=== PATIENT | female | born 1945 | race Caucasian/White ===

== ENCOUNTER 2020-09-30 11:29 | Observation (INO) | payer OTHER ==
[~2020-09-30] VITALS: Ht 147.3 cm; Wt 36.6 kg
[~2020-09-30 11:29] MED LIST: GABA100 PO; HYDR1TAB94 PO; OXYC10ER PO; Percocet 5-3251 EACH PO
[2020-09-30 12:11] LABS: BASOPHILS ABSOLUTE AUTO 0.04 K/mm3 (0.00-0.23); BASOPHILS PERCENT AUTO 1 % (0-2); EOSINOPHILS ABSOLUTE AUTO 0.06 K/mm3 (0.00-0.68); EOSINOPHILS PERCENT AUTO 2 % (0-6); Hematocrit 34.7 % (33.0-51.0); Hemoglobin 11.6 g/dL (11.5-16.0); IMMATURE GRAN ABSOLUTE AUTO 0.01 K/mm3 (0.00-0.10); IMMATURE GRAN PERCENT AUTO 0 % (0-1); LYMPHOCYTES ABSOLUTE AUTO 1.49 K/mm3 (0.84-5.20); LYMPHOCYTES PERCENT AUTO 38 % (21-46); MONOCYTES ABSOLUTE AUTO 0.53 K/mm3 (0.16-1.47); MONOCYTES PERCENT AUTO 14 % (4-13); Mean Corpuscular HGB 31.6 pg (26.0-34.0); Mean Corpuscular HGB Conc 33.4 g/dL (31.5-36.5); Mean Corpuscular Volume 95 fL (80-100); Mean Platelet Volume 8.6 fL (9.1-12.4); NEUTROPHILS ABSOLUTE AUTO 1.75 K/mm3 (1.96-9.15); NEUTROPHILS PERCENT AUTO 45 % (41-73); Platelet Count 289 K/mm3 (150-400); Red Blood Cell Count 3.67 M/mm3 (3.80-5.20); White Blood Cell Count 3.88 K/mm3 (4.00-11.30)
[2020-09-30 12:28] LABS: Alanine Aminotransfer (ALT/SGP 20 U/L (12-78); Albumin, Blood 4.2 g/dL (3.4-5.0); Alk Phos 68 U/L (50-136); Aspartate Aminotrans (AST/SGOT 30 U/L (12-37); Bilirubin, Total 0.6 mg/dL (0.1-1.0); Blood Urea Nitrogen 32 mg/dL (8-24); Bun/Creatinine Ratio 16.2 (12.0-20.0); Calcium, Blood 8.9 mg/dL (8.5-10.1); Chloride, Blood 79 mmol/L (98-108); Creatinine, Blood 1.98 mg/dL (0.40-1.00); Globulin, Blood 4.2 g/dL (2.2-4.0); Glomerular Filtration Rate 26 (60-); Glucose, Blood 96 mg/dL (70-99); Magnesium, Blood 2.5 mg/dL (1.6-2.4); Potassium, Blood 2.5 mmol/L (3.5-5.5); Sodium, Blood 132 mmol/L (136-145); Total Protein, Blood 8.4 g/dL (6.4-8.2)
[2020-09-30 12:41] LABS: CO2, Blood >45 mmol/L (21-32)
[2020-09-30 12:44] LABS: Anion Gap Unable to Calculate mmol/L (6-16)
[2020-09-30] MEDS ORDERED: DULO60 PO (14:58)
[2020-09-30] MEDS ORDERED: IMITREX50 M2 PO (18:37)
[2020-09-30 22:34] LABS: Source, Urine Clean Catch
[2020-09-30 22:36] LABS: Bilirubin, Urine Neg (Neg); Blood, Urine 1+ (Neg); Glucose Qualitative, Urine Neg (Neg); Ketones, Urine 1+ (Neg); Leukocyte Esterase, Urine Neg (Neg); Nitrite, Urine Neg (Neg); Protein, Urine 1+ (Neg); Specific Gravity, Urine 1.015 (1.003-1.022); Urobilinogen, Urine NORM (Normal)
[2020-09-30 22:38] LABS: Appearance, Urine Clear (Clear); Color, Urine Yellow (P-Yellow)
[2020-09-30 22:47] LABS: Bacteria Few /hpf; Squamous Epithelial Cells Few /hpf (Few); White Blood Cells, Urine 0-2 /hpf (0-5)
--- NOTE | 2020-09-30 22:53 | NUR ---
ADMIT: KELL IS AOX3, SENT TO ER BY PCP DUE TO KIDNEY FAILURE ON LABS. INDEPENDENT, DENIES ANY SYMPTOMS OF KIDNEY FAILURE OTHER THEN SOME SORENESS IN THE LEFT SIDE FLANK. LUNG SOUNDS ARE CLEAR, DISPITE HER CRITICAL LEVELS OF CO2 AND COPD ON XRAY. DENIES ANY PROBLEMS BRETHING. HR SINUS ON TELE, NO CHEST PAIN DESPITE LOW POTASSIUM. GOT 40MEQ IN ER. NO EDEMA NOTED. SKIN IS FRAGILE. ENCOURAGED FLUIDS AND GOOD INTAKE. STATES SHE DOES NOT HAVE MUCH OF AN APPETITE LATELY. HAS LOST 10LBS RECENTLY WITH OUT TRYING. DENIES ANY OTHER ISSUES. CALL LIGHT IS IN REACH.
[2020-10-01 04:50] LABS: BASOPHILS ABSOLUTE AUTO 0.04 K/mm3 (0.00-0.23); BASOPHILS PERCENT AUTO 1 % (0-2); EOSINOPHILS ABSOLUTE AUTO 0.08 K/mm3 (0.00-0.68); EOSINOPHILS PERCENT AUTO 2 % (0-6); Hematocrit 30.3 % (33.0-51.0); Hemoglobin 10.2 g/dL (11.5-16.0); Mean Corpuscular HGB 31.6 pg (26.0-34.0); Mean Corpuscular HGB Conc 33.7 g/dL (31.5-36.5); Mean Corpuscular Volume 94 fL (80-100); Mean Platelet Volume 8.8 fL (9.1-12.4); Platelet Count 258 K/mm3 (150-400); Red Blood Cell Count 3.23 M/mm3 (3.80-5.20); White Blood Cell Count 3.91 K/mm3 (4.00-11.30)
[2020-10-01 04:52] LABS: IMMATURE GRAN ABSOLUTE AUTO 0.01 K/mm3 (0.00-0.10); IMMATURE GRAN PERCENT AUTO 0 % (0-1); LYMPHOCYTES ABSOLUTE AUTO 1.65 K/mm3 (0.84-5.20); LYMPHOCYTES PERCENT AUTO 42 % (21-46); MONOCYTES ABSOLUTE AUTO 0.49 K/mm3 (0.16-1.47); MONOCYTES PERCENT AUTO 13 % (4-13); NEUTROPHILS ABSOLUTE AUTO 1.64 K/mm3 (1.96-9.15); NEUTROPHILS PERCENT AUTO 42 % (41-73)
[2020-10-01 05:05] LABS: Bun/Creatinine Ratio 19.6 (12.0-20.0); Calcium, Blood 8.4 mg/dL (8.5-10.1); Creatinine, Blood 1.58 mg/dL (0.40-1.00); Magnesium, Blood 2.2 mg/dL (1.6-2.4); Potassium, Blood 2.8 mmol/L (3.5-5.5)
--- NOTE | 2020-10-01 05:24 | NUR ---
SHIFT SUMMARY: AOX3, INDEPENDENT IN THE ROOM. NO PAIN OR DISCOMFORT. SHE DID REPORT OCCATIONAL LEFT FLANK PAIN BUT NONE THIS SHIFT. URINE OUTPUT HAS INCREASED SINCE FLUIDS WERE GIVEN BUT STATES SHE USUALLY ONLY GOES LITTLE AT A TIME. STATES INTAKE OF FLUIDS IS NOT MUCH SHE SHOULD. NO EDMEA. LUNG SOUNDS ARE CLEAR. POTASSIUM WAS 2.5 WHICH CAME UP TO 2.8. NA WAS 132 CAME UP TO 133. CREATINE WAS 1.98 NOW IS 1.58, AND GFR WS 26 NOW AT 31. CO2 WAS >[address] COVARRUBIAS CONSULTED. ORDER FOR K JEREMY OBTAINED. VSS/AFEBRILE. WILL CONTINUE TO MONITOR. CALL LIGHT IS IN REACH.
[2020-10-01 17:39] LABS: Base Excess Venous 17.2 mmol/L; Bicarbonate Venous 39.4 mmol/L (24.0-30.0); PCO2 Venous 44.9 mmHg (38-42); PO2 Venous 72.1 mmHg (38-42); pH Blood Venous 7.55 (7.34-7.37)
--- NOTE | 2020-10-01 18:12 | NUR ---
SHIFT SUMMARY PT ALERT ORIENTED; INDEPENDENT IN THE ROOM. VSS AND ON RA. ON TELE NS @70S. CALLED DR COVARRUBIAS AND DR DING FOR VBG CRITICAL VALUE. K LEVEL IS NOW WNL. PT DENIES CP AND PAIN. NO COMPLAINTS OF RETENTION OR PAIN WHEN URINATING. BED IS IN THE LOWEST POSITION AND CALL LIGHT WITHIN REACH
--- NOTE | 2020-10-01 22:06 | NUR ---
ASSUMED CARE. AOX3, INDEPENDENT IN THE ROOM. POTASSIUM DOING BETTER, WILL SEE IF LEVELS HOLD IN THE AM. KIDNEY FUNCTIONS HAVE IMPROVED. SHE STILL STATES NO SYMPTOMS. LUNGS ARE CLEAR DESPITE THE CO2 RETENTION AND ELEVATION IN PH LEVELS. HR SINUS ON TELE. DENIES ALL SYPTOMS STATES SHE FEELS GREAT. GOT ORDER FOR PM MEDICATION, ADMINISTERED THEM. WILL CONTINUE TO MONITOR. CALL LIGHT IN REACH.
[2020-10-02 05:03] LABS: Hematocrit 30.5 % (33.0-51.0); Hemoglobin 10.4 g/dL (11.5-16.0)
--- NOTE | 2020-10-02 05:32 | NUR ---
SHIFT SUMMARY: VS WNL, NO PAIN. GOT ORDER FOR HOME MEDICATIONS LAST NIGHT. GAVE AT BEDTIME. SHE SLEPT WELL T/O NIGHT. DENIED ANY SYMPTOMS OR CONCERNS. H/H THIS AM WAS 10.4/30.5, AWAITING REST OF LABS. STILL NO EDEMA, OR RESPIRTORY ISSUES DESPITE LAB RESULTS. WILL CONTINUET TO MONITOR, CALL LIGHT IN REACH.
[2020-10-02 05:52] LABS: Albumin, Blood 3.3 g/dL (3.4-5.0); Anion Gap 5 mmol/L (6-16); Blood Urea Nitrogen 28 mg/dL (8-24); Bun/Creatinine Ratio 23.1 (12.0-20.0); CO2, Blood 35 mmol/L (21-32); Calcium, Blood 8.7 mg/dL (8.5-10.1); Chloride, Blood 98 mmol/L (98-108); Creatinine, Blood 1.21 mg/dL (0.40-1.00); Glomerular Filtration Rate 46 (60-); Glucose, Blood 90 mg/dL (70-99); Magnesium, Blood 1.9 mg/dL (1.6-2.4); Potassium, Blood 3.4 mmol/L (3.5-5.5); Sodium, Blood 138 mmol/L (136-145)
[2020-10-02 13:14] LABS: Stool Occult Bld Immuno 1 Positive (NEGATIVE)
--- NOTE | 2020-10-02 14:28 | NUR ---
ADMIT:1945 DISCHARGE: 10/02/20 DX: Acute on chronic Kidney failure CC:kwilcox RISHI CALL: pt @ [phone] RESIDENCE: home CAREGIVER: Rose Arevalo , Family Member, Emery Persaud, Child, Clarissa Bauer, Family Member DX: chronic arthritis, insomnia, anxiety/depression, osteoporosis DME: none CCM: none HOME HEALTH: [facility]2019 SUMMARY: 10/02/20- Dr. Manzo called to report that Dr. Roa is agreeing with having the pt complete tests as an outpt. -kjw per chart review with Dr. Manzo, Dr. Roa would like to run some tests on the pt to determine why she is having issues with her kidneys and unexplained weight loss. Dr. Manzo is going to see if these tests can be completed as an outpt because the pt is wanting to d.c home. Met with pt who reports that she would really like to go home. She was independent prior to coming into the hospital and didn't need any caregiver or home health services. Pt reports that she lives alone in a [address] community with her dog and has neighbors that look in on her and they are currently watching her dog for her. Pt states that she has a sister that lives close by. Pt lives in a single story home with working utilities, including AC. There is a step or 2 to get into the back of the house and a ramp up to the front door. 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 Pt does not have a POA and her NOK (next of kin) is her son Emery Persaud. She has no DME needs at this time. Reviewed RISHI and pt acknowledged understanding needing to have follow up care. -kjw
[2020-10-02] MEDS ORDERED: SPIR25 PO (14:45)
--- NOTE | 2020-10-02 15:44 | NUR ---
1530 PT DISCHARGED HOME . IV REMOVED, NO SS OF INFECTION NOTED.NURSE WENT OVER DC INSTRUCTIONS WITH PT. PT REQUESTED AND WAS ABLE TO WALK OUT WITH STAFF.
[2020-10-07 01:10] LABS: ALDOS/RENIN RATIO 3.1 (0.0-30.0); ALDOSTERONE 4.8 ng/dL (0.0-30.0)
== END 2020-10-02 15:28 | disposition home or self-care (01) ==
LOC: ER 11:29 → MEDS 11:30 → ER 18:50 → MEDS 18:50
PROVIDERS: Internal Medicine Nephrology; Physician Assistant; ADMIT Student in an Organized Health Care Education/Training Program
DX: N17.9 Acute kidney failure, unspecified (principal); N18.9 Chronic kidney disease, unspecified; E87.6 Hypokalemia; E87.1 Hypo-osmolality and hyponatremia; E86.9 Volume depletion, unspecified; D64.9 Anemia, unspecified; M80.08XA Age-related osteoporosis with current pathological fracture, vertebra(e), initial encounter for fracture; R79.81 Abnormal blood-gas level; R63.4 Abnormal weight loss; E87.3 Alkalosis; E88.09 Other disorders of plasma-protein metabolism, not elsewhere classified; M79.2 Neuralgia and neuritis, unspecified; Z96.642 Presence of left artificial hip joint; Z68.1 Body mass index [BMI] 19.9 or less, adult; Z80.0 Family history of malignant neoplasm of digestive organs; Z87.442 Personal history of urinary calculi
CPT/HCPCS: 36415; 71046; 76770; 80048; 80053; 80069; 81001; 82088; 82274; 82803; 83735; 84132; 84244; 84443; 85014; 85018; 85025; 85651; 86140; 93005; 93010; 96361; 96365; 96366; 96372; 99284-25; A9270; G0378; J1650; J3480; J7040; J7120

== ENCOUNTER → 2020-10-12 | Outpatient (CLI) | payer OTHER ==
[~2020-10-12] MED LIST changes: +DULO60 PO; +IMITREX50 M2 PO; +SPIR25 PO
[2020-10-13 12:58] LABS: Creatinine Urine 65.7 mg/dL (27.00-270.00); Microalbumin, Urine Quant. 15.6 mg/L (0.000-20.000); Protein, Urine Quantitative 16.5 mg/dL (0.0-11.9)
== END | disposition home or self-care (01) ==
LOC: LAB 08:48 → LAB SHORT 08:48
PROVIDERS: Internal Medicine Nephrology
DX: N18.30 Chronic kidney disease, stage 3 unspecified (principal); D63.1 Anemia in chronic kidney disease; N25.81 Secondary hyperparathyroidism of renal origin; E55.9 Vitamin D deficiency, unspecified; E78.00 Pure hypercholesterolemia, unspecified; D50.9 Iron deficiency anemia, unspecified; D51.8 Other vitamin B12 deficiency anemias; D52.8 Other folate deficiency anemias; R76.9 Abnormal immunological finding in serum, unspecified; R94.5 Abnormal results of liver function studies; R94.6 Abnormal results of thyroid function studies; G60.9 Hereditary and idiopathic neuropathy, unspecified
CPT/HCPCS: 81050; 82043; 82570; 84156

== ENCOUNTER 2021-01-08 12:30 | Day surgery (SDC) | payer OTHER ==
[~2021-01-08] VITALS: Ht 147.3 cm; Wt 34.0 kg
[~2021-01-08 12:30] MED LIST changes: +TYLENOL #2 PO
--- NOTE | 2021-01-08 16:03 | NUR ---
01/08/21 1603 Elbert Montilla 0.15ML OF EPI 1MG/ML ADDED TO 30ML OF BUPIVICAINE 0.5% TO CREATE A LOCAL SOLUTION OF BUPIVICAINE 0.5% WITH EPI 1:200,000. BUPIVICAINE WITH EPI MIXED 1:1 WITH LIDOCAINE 1% FOR INJECTION.
== END 2021-01-08 17:07 | disposition home or self-care (01) ==
LOC: ORSCSDS 12:30
PROVIDERS: Orthopaedic Surgery
PROC: 0LB50ZZ Excision of Right Lower Arm and Wrist Tendon, Open Approach (ICD-10-PCS; principal; 2021-01-08 14:00)
PROC: 0LB60ZZ Excision of Left Lower Arm and Wrist Tendon, Open Approach (ICD-10-PCS; principal; 2021-01-08 14:00)
DX: M67.432 Ganglion, left wrist (principal); M67.431 Ganglion, right wrist; M65.141 Other infective (teno)synovitis, right hand; F32.A Depression, unspecified; Z79.899 Other long term (current) drug therapy
CPT/HCPCS: J0171; J0690; J2250; J2704; J3010; J7120

== ENCOUNTER → 2021-03-26 | Outpatient (CLI) | payer OTHER ==
[2021-03-26 13:20] LABS: Stool Occult Bld Immuno 1 Negative (NEGATIVE)
== END | disposition home or self-care (01) ==
LOC: LAB SHORT 08:05
PROVIDERS: Physician Assistant
DX: K92.1 Melena (principal)
CPT/HCPCS: 82274

== ENCOUNTER 2021-03-28 07:23 | Inpatient (IN) | payer OTHER ==
[~2021-03-28] VITALS: Ht 147.3 cm; Wt 34.0 kg
[2021-03-28 11:05] LABS: Influenza A, PCR NEGATIVE (NEGATIVE); Influenza B, PCR NEGATIVE (NEGATIVE); Resp Syncytial Virus, PCR NEGATIVE (NEGATIVE); SARS-Cov-2 (COVID-19) PCR, MMC NEGATIVE (NEGATIVE)
--- NOTE | 2021-03-28 17:57 | NUR ---
SHIFT SUMMARY PT A&OX4, VSS/RA, RLE FEMUR FRACTURE, PAIN MANAGED WITH 5 MG NORCO, GILMER PO REG DIET, WILL REPORT TO ONCOMING NOC RN.
[2021-03-29 04:40] LABS: BASOPHILS ABSOLUTE AUTO 0.03 K/mm3 (0.00-0.23); BASOPHILS PERCENT AUTO 1 % (0-2); EOSINOPHILS ABSOLUTE AUTO 0.07 K/mm3 (0.00-0.68); EOSINOPHILS PERCENT AUTO 1 % (0-6); Hematocrit 24.9 % (33.0-51.0); Hemoglobin 8.5 g/dL (11.5-16.0); IMMATURE GRAN ABSOLUTE AUTO 0.02 K/mm3 (0.00-0.10); IMMATURE GRAN PERCENT AUTO 0 % (0-1); LYMPHOCYTES ABSOLUTE AUTO 0.87 K/mm3 (0.84-5.20); LYMPHOCYTES PERCENT AUTO 14 % (21-46); MONOCYTES ABSOLUTE AUTO 0.68 K/mm3 (0.16-1.47); MONOCYTES PERCENT AUTO 11 % (4-13); Mean Corpuscular HGB 32.7 pg (26.0-34.0); Mean Corpuscular HGB Conc 34.1 g/dL (31.5-36.5); Mean Corpuscular Volume 96 fL (80-100); Mean Platelet Volume 9.1 fL (9.1-12.4); NEUTROPHILS PERCENT AUTO 73 % (41-73); Platelet Count 260 K/mm3 (150-400); RDW Coefficient Variation 14.5 % (11.7-14.2); RDW Standard Deviation 50.9 fL (35.1-46.3); White Blood Cell Count 6.27 K/mm3 (4.00-11.30)
[2021-03-29 05:09] LABS: Bun/Creatinine Ratio 27.9 (12.0-20.0); Calcium, Blood 8.5 mg/dL (8.5-10.1); Creatinine, Blood 1.29 mg/dL (0.40-1.00); Potassium, Blood 2.8 mmol/L (3.5-5.5)
--- NOTE | 2021-03-29 05:29 | NUR ---
PT IS IN BED AND IS RESTING WELL AND IN STABLE CONDITION. ALERT, AWAKE AND ORIENTED. HAS REPORTED PAIN TO HER LEFT HIP AND MEDICATED INDICATED, NO OTHER COMPLAINTS. LEFT LEG MOVEMENT IS LIMITED D/T L HIP FRACTURE, BUT CIRCULATION IS INTACT EVIDENCED BY WARMTH AND PALPABLE PULSES, SWELLING IN THE AFFECTED EXTREMITY IS ALSO MINIMAL. PT IS ASSISTED WITH HER CARE AND ADLS, MEDICATED ORDERED. SHE IS ASSISTED WITH BATHROOM AND TOILETING NEEDS, CALL LIGHT GIVEN TO HER AND REMINDED TO CALL FOR HELP WHEN ASSISTANCE IS NEEDED SHE IS MONITORED.
--- NOTE | 2021-03-29 16:32 | NUR ---
Initial Assessment with [facility] Community Coordinator Of Online Programs 1. Who did you speak with? Spoke with patient 2. What is the patient's prior level of functions? Patient lives independently in a nursing home mobile home community in [place]. Patient still drives and if pretty independent with support from her sister and friends when needed. Patient's home is safe with running water, electricity, and sewage. Patient uses a walker, has a ramp, shower seat, and toilet lift for assistance. 3. What is the patient's current living situation? Patient lives independently. 4. Is the patient and/or family able to provide transportation to and from doctor's appointments and tow picker prescriptions? Yes, patient drives and able to provide transportation to appointments and pharmacy ([facility]). 5. Does patient still drive? Yes 6. POA/PCP/NOK: PCP-MEG Soni/NOK: Sister Rose Mayer 7. ANTICIPATED DISCHARGE NEEDS/GOALS: TBD -patient able to return home 8. List barriers to discharge: None on this date 9. Discharge Plan: TBD 10. PCP Follow up appointment: Will be scheduled within seven calendar days of discharge. 11. OTHER COMMENTS: Patient has a niece in [place] and a host of friends and neighbors to help as needed.
--- NOTE | 2021-03-29 18:23 | NUR ---
SUMMARY: PT ADMITTED FOR R HIP FX. A/O, VSS. PT MEDICATED FOR PAIN Q4 TODAY. ABLE TO WIGGLE TOES AND SENSATION INTACT. PT REFUSED REPOSITIONING SEVERAL TIMES TODAY DUE TO PAIN, AGREED TO REPOSITION TONIGHT. SHARIF PATENT AND DRAINING. POTASSIUM CURRENTLY INFUSING. PLAN FOR NPO AT 0000 AND SURGERY TOMORROW. WILL REPORT TO SKY CARDENAS
--- NOTE | 2021-03-30 10:52 | NUR ---
Pt. was alert and sitting up in bed. Pt. presented a postive demeanor but after theraputic listening, verbalized some unsettledness regarding a delay in her procedure. Pt. welcomed my invitation to pray with her. After pastoral prayer she displayed evidence of reduced stress, and gratitude for the hospitals concern for her care. Pt. verbalized gratitude, and welcomed me to check on her progress. I will continue to check on her.
--- NOTE | 2021-03-30 13:01 | NUR ---
PT TRANSFERED TO [facility] VIA BED FROM FLOOR. Patient confirms NPO status and agrees with scheduled surgery. Pre-Op teaching done. Pt verbalizes understanding. History, Chart, Medications and Allergies reviewed before start of procedure. Lungs clear T/O to Auscultation.
--- NOTE | 2021-03-30 14:23 | NUR ---
03/30/21 1423 Rose Segura PATIENT ARRIVED IN OR WITH SHARIF CATHETER IN PLACE DRAINING YELLOW URINE.
--- NOTE | 2021-03-30 18:19 | NUR ---
SHIFT SUMMARY PT IS POD#0 FROM L HIP REPAIR WITH DR. LYNCH. PT IS TOLERATING PO AFTER SURGERY. PAIN MANAGED WITH PO PAIN MEDICATION. PT'S SISTER WAS AT BEDSIDE THIS EVENING. VSS. WILL MONITOR UNTIL REPORT TO SKY CARDENAS.
[2021-03-31 04:44] LABS: BASOPHILS ABSOLUTE AUTO 0.01 K/mm3 (0.00-0.23); BASOPHILS PERCENT AUTO 0 % (0-2); EOSINOPHILS PERCENT AUTO 0 % (0-6); Hematocrit 23.1 % (33.0-51.0); Hemoglobin 7.6 g/dL (11.5-16.0); IMMATURE GRAN ABSOLUTE AUTO 0.03 K/mm3 (0.00-0.10); IMMATURE GRAN PERCENT AUTO 1 % (0-1); LYMPHOCYTES ABSOLUTE AUTO 0.43 K/mm3 (0.84-5.20); LYMPHOCYTES PERCENT AUTO 7 % (21-46); MONOCYTES PERCENT AUTO 8 % (4-13); Mean Corpuscular HGB 32.8 pg (26.0-34.0); Mean Corpuscular HGB Conc 32.9 g/dL (31.5-36.5); Mean Corpuscular Volume 100 fL (80-100); Mean Platelet Volume 9.2 fL (9.1-12.4); NEUTROPHILS ABSOLUTE AUTO 5.68 K/mm3 (1.96-9.15); NEUTROPHILS PERCENT AUTO 85 % (41-73); Platelet Count 248 K/mm3 (150-400); RDW Coefficient Variation 14.8 % (11.7-14.2); RDW Standard Deviation 53.3 fL (35.1-46.3); Red Blood Cell Count 2.32 M/mm3 (3.80-5.20); White Blood Cell Count 6.65 K/mm3 (4.00-11.30)
--- NOTE | 2021-03-31 05:56 | NUR ---
SHIFT SUMMARY NO ACUTE CHANGES OVERNIGHT. POD1 R HIP GAMMA NAILING WIHT 2 AQUACEL DRESSING, CDI. PT REPORTS MODERATE PAIN, APPEARS COMFORTABLE WHEN AT REST. AOX4. PLEASANT. PT DENIES NUMBNESS AND TINGLING SENSATION. MILDLY HYPOTENSIVE BUT ASYMPTOMATIC. PT DENIES CHEST PAIN AND SOB. IV FLUIDS INFUSING OVERNIGHT. TOLERATING PO INTAKE. DENIES NAUSEA AND VOMITING. PAIN MANAGED WITH TYLENOL AND ULTRAM. SHARIF DRAINING, PATENT, OFF FLOOR WITH AN OUTPUT OF 550 ML. USE CALL LIGHT APPROPRIATELY. PT STS SHE SLEPT WELL OVERNIGHT. CALL LIGHT WITHIN REACH. WILL PROVIDE REPORT TO ONCOMING NURSE. PT WILL WORK WITH THERAPY TODAY. TOETOUCH WB.
--- NOTE | 2021-03-31 15:53 | NUR ---
Pt. was sitting up in her recliner chair. Pt. welcomed my return visit. Pt. reported results from the previous day's surgery, and anticipates being discharged tomorrow. Explored her plans for continued self-care. Offered emotional support and provided pastoral career technical counselor. Pt. has a strong ander system and family support. Pt. displayed evidence of increased resolve to heal and help others, as others had helped her. Pt. verbalized gratitude for care received. Prayed with pt. Agreed to check on her before discharge.
--- NOTE | 2021-03-31 17:54 | NUR ---
SHIFT SUMMARY: PATIENT ABLE TO TRANSFER TO BEDSIDE COMMODE USING A WALKER WITH TOE TOUCH TO RIGHT LEG ON GUARD ASSIST X 1. VOMITTED SOME OF THE FOOD SHE ATE, ZOFRAN GIVEN. PAIN MANAGED WITH PO PAIN MEDICINE. RIGHT HIP WITH AQUACEL DRESSING DRY & INTACT. AOX3, NO NEW UNUSUSALITIES NOTED, WILL CONTINUE TO MONITOR.
--- NOTE | 2021-04-01 04:09 | NUR ---
EMESIS COFFEE GROUND LIKE/LIQUID 800ML AT 0325AM. PT REPORTS NAUSEA, STATING "THIS HAPPENED BEFORE WHEN I HAD SURGERY" ABOUT A YEAR AGO. SHE DENIES HX OF GI BLEED AND ULCERS. SHE ALSO STATES THAT THE COLOR AND CONSISTENCY IS THE SAME BEFORE. IT USUALLY HAPPENS WHEN SHE IS ANXIOUS AND HER ROUTINE CHANGES, SUCH EATING SCHEDULE. PT ALSO REPORTS SOME DIZZINESS. ASSESSED SURGICAL SITE, REMAIN CLEAN, DRY AND INTACT. NO BRUISING/DISCOLORATION AROUND THE SITE. SHE IS ALSO HYPOTENSIVE AND TACHY. CHARGE NURSE NOTIFIED AND DR. BENAVIDEZ NOTIFIED. ORDER FOR BOLUS AND LABS ARE ADDED. PT IS ALERT AND ORIENTED X4. PLEASANT. SMILING. APPEARS TO BE PALE. SHARIF INTACT AND DRAINING WITH AN OUTPUT OF 250ML. WILL CONTINUE TO MONITOR PATIENT AND WILL FOLLOW UP WITH HOSPITALIST FOR ANY CHANGES AND IF NO IMPROVEMENT.
[2021-04-01 04:28] LABS: BASOPHILS ABSOLUTE AUTO 0.03 K/mm3 (0.00-0.23); BASOPHILS PERCENT AUTO 0 % (0-2); EOSINOPHILS ABSOLUTE AUTO 0.03 K/mm3 (0.00-0.68); EOSINOPHILS PERCENT AUTO 0 % (0-6); Hematocrit 18.2 % (33.0-51.0); IMMATURE GRAN ABSOLUTE AUTO 0.03 K/mm3 (0.00-0.10); IMMATURE GRAN PERCENT AUTO 0 % (0-1); LYMPHOCYTES ABSOLUTE AUTO 1.47 K/mm3 (0.84-5.20); LYMPHOCYTES PERCENT AUTO 19 % (21-46); MONOCYTES ABSOLUTE AUTO 0.81 K/mm3 (0.16-1.47); MONOCYTES PERCENT AUTO 10 % (4-13); Mean Corpuscular HGB 32.8 pg (26.0-34.0); Mean Corpuscular Volume 100 fL (80-100); Mean Platelet Volume 9.3 fL (9.1-12.4); NEUTROPHILS ABSOLUTE AUTO 5.57 K/mm3 (1.96-9.15); NEUTROPHILS PERCENT AUTO 70 % (41-73); Platelet Count 308 K/mm3 (150-400); RDW Coefficient Variation 15.4 % (11.7-14.2); RDW Standard Deviation 55.2 fL (35.1-46.3); Red Blood Cell Count 1.83 M/mm3 (3.80-5.20); White Blood Cell Count 7.94 K/mm3 (4.00-11.30)
[2021-04-01 06:02] LABS: Albumin, Blood 2.1 g/dL (3.4-5.0); Albumin/Globulin Ratio 0.7 (0.8-1.8); Bilirubin, Total 0.5 mg/dL (0.1-1.0); Bun/Creatinine Ratio 30.4 (12.0-20.0); Calcium, Blood 8.1 mg/dL (8.5-10.1); Creatinine, Blood 1.12 mg/dL (0.40-1.00); Globulin, Blood 3.1 g/dL (2.2-4.0); Total Protein, Blood 5.2 g/dL (6.4-8.2)
--- NOTE | 2021-04-01 06:07 | NUR ---
BBK ORDER FROM DR. BENAVIDEZ PER CHARGE NURSE ROSA M FOR BLOOD TRANSFUSION, 1UNIT.
--- NOTE | 2021-04-01 06:22 | NUR ---
SHIFT SUMMARY PT AOX4. PT HAS BEEN VERY NICE AND PLEASANT T/O SHIFT. POD2 R GAMMA NAILING WITH DR. BENAVIDEZ. PT REPORTS PAIN WITH MOVEMENT, 7/10 PAIN LEVEL. PAIN MANAGED WITH NORCO. REPORTS SOME NAUSEA AND VOMITED AT 0320 IN THE MORNING WITH COFFEE GROUND EMESIS 800ML (SEE PREVOIUS NOTES). ZOFRAN IV ADMINSTERED. PT STS SHE FEELS SOME DIZZINESS, APPEARS TO BE PALE. RECHECKD VITALS. SHE WAS HYPOTENSIVE AND TACHY. NOTIFIED CHARGE NURSE ROSA M, SHE CONSULTED DR. BENAVIDEZ. ORDERS FOR LAB AND 500CC FLUIDS BOLUS WAS ADDED. BP IMPROVED AND HGB AT 6.0. NOTIFIED DR. BENAVIDEZ. 1UNIT OF BLOOD WAS ORDERED. PT WAS SYMPTOMATIC BUT HAS BEEN ALERT AND ORIENTED. SHARIF IS DRAINING AND PATENT WITH 250ML OUTPUT. PLAN FOR BLOOD TO BE ADMINISTERED THIS MORNING. AND WILL CONTINUE TO MONITOR PATIENT. CALL LIGHT WITHIN REACH. WILL PROVIDE REPORT TO ONCOMING NURSE.
--- NOTE | 2021-04-01 10:56 | NUR ---
I UNIT PRBC DONE INFUSING PT REPORTS FEELING MORE ENERGETIC SINCE INFUSION. SHE REPORTS REFLUX PAIN IMPROVED THIS AFTERNOON AND LESS NAUSEA. SHE DENIES ANY SHORTNESS OF BREATH, ITCHING, NO REDNESS SEEN. TOLERATED INFUSION WELL.
--- NOTE | 2021-04-01 11:04 | NUR ---
SPOKE WITH DR JOSE REGARDING COFFEE GROUND EMESIS LAST NIGHT. ORDERS RECIEVED TO PLACE GI CONSULT.
--- NOTE | 2021-04-01 14:03 | NUR ---
EMESIS PT HAD 200ML COFFEE GROUND EMESIS OUT. SHE DENIES NAUSEA AND REPORTS STILL FEELING OKAY.
[2021-04-01 14:10] LABS: Hematocrit 22.6 % (33.0-51.0); Hemoglobin 7.7 g/dL (11.5-16.0)
--- NOTE | 2021-04-01 16:10 | NUR ---
SHIFT SUMMARY POD 2 GAMMA NAIL AA0X4. PT UP TO CHAIR WITH THERAPY. REPORTS PAIN TOLERABLE EXCEPT WITH MOVEMENT. DECLINED PAIN MEDS WHEN EDUCATED ON IMPORTANCE OF USING MEDICATION TO MOVE WELL. SHE RECIEVED ONE UNIT OF BLOOD AND REPORTS FEELING IMPROVEMENT. ONE EMESIS DURING SHIFT. PT HAS BEEN DRINKING FLUIDS ONLY. BOWEL SOUNDS VERY QUIET AND PT DECLINES PASSING FLATUS. SHARIF REMAINS PATENT AND DRAINING. PLAN TO AWAIT PLACEMENT
--- NOTE | 2021-04-02 04:22 | NUR ---
PT IS ALERT AND ORIENTED X4. INCISION COVERED WITH DRESSING; INTACT. DIET REGULAR BUT NOT EATING MUCH. NOT NAUSEATED OR DIZZY. NO EMESIS. UP TONIGHT WITH RN. PT IS VERY PLEASANT.
[2021-04-02 04:28] LABS: BASOPHILS ABSOLUTE AUTO 0.03 K/mm3 (0.00-0.23); BASOPHILS PERCENT AUTO 0 % (0-2); EOSINOPHILS ABSOLUTE AUTO 0.02 K/mm3 (0.00-0.68); EOSINOPHILS PERCENT AUTO 0 % (0-6); IMMATURE GRAN PERCENT AUTO 1 % (0-1); LYMPHOCYTES ABSOLUTE AUTO 1.12 K/mm3 (0.84-5.20); LYMPHOCYTES PERCENT AUTO 15 % (21-46); MONOCYTES PERCENT AUTO 12 % (4-13); Mean Corpuscular HGB 31.7 pg (26.0-34.0); Mean Corpuscular HGB Conc 34.3 g/dL (31.5-36.5); Mean Platelet Volume 9.1 fL (9.1-12.4); NEUTROPHILS ABSOLUTE AUTO 5.19 K/mm3 (1.96-9.15); NEUTROPHILS PERCENT AUTO 71 % (41-73); Platelet Count 215 K/mm3 (150-400); RDW Coefficient Variation 17.3 % (11.7-14.2); Red Blood Cell Count 1.89 M/mm3 (3.80-5.20); White Blood Cell Count 7.36 K/mm3 (4.00-11.30)
[2021-04-02 04:32] LABS: Mean Corpuscular Volume 93 fL (80-100)
[2021-04-02 04:33] LABS: Hematocrit 17.5 % (33.0-51.0)
[2021-04-02 06:16] LABS: Bun/Creatinine Ratio 38.3 (12.0-20.0); Calcium, Blood 7.6 mg/dL (8.5-10.1); Creatinine, Blood 0.97 mg/dL (0.40-1.00); Potassium, Blood 3.9 mmol/L (3.5-5.5)
--- NOTE | 2021-04-02 07:34 | NUR ---
recvd report from previous RN Julia/Gwen, pt sleeping in bed, awakens easily, a/o x 4, call light within reach, denies pain, and n/v. bed in lowest position, call light within reach. Pt will be receiving 1 unit PRBC this morning. Blood slip verified with armband.
--- NOTE | 2021-04-02 08:09 | NUR ---
dr Michael rounding with pt. 1 unit PRBC transfusing.
--- NOTE | 2021-04-02 08:41 | NUR ---
CLOTH WEIGHER Issa in to place peripheral IV using Ultrasound. LUE peripheral IV leading, removed wnl.
--- NOTE | 2021-04-02 11:16 | NUR ---
0930-SUSTAINABILITY MANAGER inserted peripheral IV with ultrasound assistance r/t previous PIV infiltrating/leaking. via ultrasound, pt's vasculature very small; SUSTAINABILITY MANAGER reports power glide most likely not possible r/t vasculature. 1030-2nd PIV infiltrated/leaking, removed. notified. 1100- Dr. Michael consulted with pt and offered option of central line placement for blood transfusion. Pt and provider have chosen to have no IV access at this time, recheck labs tomorrow and proceed then following results.
[2021-04-02 13:35] LABS: Hematocrit 20.6 % (33.0-51.0); Hemoglobin 6.9 g/dL (11.5-16.0)
--- NOTE | 2021-04-02 15:28 | NUR ---
SHIFT SUMMARY: PT REMAINED A/O X 4, PLEASANT/COOPERATIVE. PT REMAINES WITH NO PERIPHERAL IV, WILL REVIEW LABS WITH MD TOMORROW AND MAKE A DECISION ABOUT NEED FOR A CENTRAL LINE. PT/OT DID NOT WORK WITH PT R/T H/H VALUES OUTSIDE THEIR PROTOCOL. PT HAS TOLERATED HER PO INTAKE WITH NO N/V. PT REPORTS PAIN CONTROLLED PER EMAR AT 4/10 ON REASSESSMENT. R HIP AQUACEL DRESSINGS REMAINED C/D/I, NO SHADOWING. PT UP IN CHAIR. PT HAS TALKED ON THE TELEPHONE WITH FRIENDS/FAMILY THIS SHIFT.
[2021-04-02 21:29] LABS: Hematocrit 18.7 % (33.0-51.0); Hemoglobin 6.4 g/dL (11.5-16.0)
--- NOTE | 2021-04-02 22:01 | NUR ---
MIDLINE/LOW HGB ICU nurses to bedside and placed a successful midline in the RUE. [address] Contreras covering and made aware. Orders for 1 unit of PRBC. Will administer to patient. FABIO
--- NOTE | 2021-04-02 23:51 | NUR ---
BLOOD TRANSFUSION 1/1 unit of PRBC currently infusing without complication. PT tolerating. VSS. Will reassess VS at 0036. WCTM
--- NOTE | 2021-04-03 02:20 | NUR ---
04/10 unit of PRBC completed at 0130. VSS. Infused without any complication. Will draw H&H at 0500 per order. WCTM.
[2021-04-03 05:50] LABS: Hematocrit 23.1 % (33.0-51.0)
--- NOTE | 2021-04-03 07:04 | NUR ---
recvd report from previous shift rn Nohelia, pt awake lying in bed, a/o x 4, pleasant/cooperative, denies need for analgesia at this time, denies n/v. aquacel x 2 R hip c/d/i
--- NOTE | 2021-04-03 10:19 | NUR ---
PT in working with patient
--- NOTE | 2021-04-03 14:26 | NUR ---
ASSUMED CARE OF PT, SITTING ON CHAIR, DENIES ANY PAIN OR ANY DISCOMFORT AT THIS TIME, CONT. TO MONITOR FOR ANY CHANGES.
[2021-04-03 17:21] LABS: Hematocrit 24.2 % (33.0-51.0); Hemoglobin 8.3 g/dL (11.5-16.0)
--- NOTE | 2021-04-03 18:03 | NUR ---
OOB TO CHAIR MOST OF THE DAY, PLEASEANT AND COOPERATIVE, MEDICATED FOR PAIN ONCE THIS AFTERNOON, REPORTS ADEQUATE PAIN RELIEF AFTER TYLENOL GIVEN, REPORTS TOLERATING DIET WELL, DENIES ANY N/V, NO ACUTE CHANGES THIS SHIFT.
--- NOTE | 2021-04-03 21:43 | NUR ---
Pt is up on her chair in her room and is resting quietly in stable condition. Medicated with tylenol following complaints of right hip with positive results, no other complaints. She is alert and oriented, assisted with care and adls, assisted with bathroom and toileting needs. RLE assessed, minimal swelling noted by the thigh. Pt is able to move her legs. Her call light was given to her and was encouraged to call for help when assistance is needed as she is monitored.
[2021-04-04 04:56] LABS: Hematocrit 26.4 % (33.0-51.0); Hemoglobin 8.7 g/dL (11.5-16.0)
--- NOTE | 2021-04-04 06:29 | NUR ---
PT REMAINS IN BED THROUGHOUT THE NIGHT AND IS RESTING IN STABLE CONDITIION. ASSISTED WITH CARE AND ADLS, ASSISTED WITH BATHROOM AND TOILETING NEEDS. ASSISTED WITH TURNING AND REPOSITIONING TO ENHANCE COMFORT. CALL GORMAN PLACED WITHIN REACH AND URGED TO CALL FOR HELP WHEN ASSISTANCE IS NEEDED.
[2021-04-04] MEDS ORDERED: BISA10S PR (13:20)
[2021-04-04] MEDS ORDERED: DULCOLAX400 MG/5 M PO (13:21)
[2021-04-04] MEDS ORDERED: PANT40 PO (13:21)
[2021-04-04] MEDS ORDERED: MIRALAX17 GM PO (13:22)
[2021-04-04] MEDS ORDERED: Aspir 8181 MG PO (13:23)
--- NOTE | 2021-04-04 13:31 | NUR ---
DISCHARGE ARRANGEMENTS PT REPORT SHE WILL BE STAYING WITH HER SISTER WHEN SHE DISCHARGES. PT REPORTS SHE HAS A BEDSIDE COMMODE, SHOWER CHAIR AND WALKER AVALIABLE TO HER. PRESCRIPTIONS SENT TO [facility] PER PT REQUEST, CONFIRMATION RECEIVED. PT REQUESTED [employer]. FAX SENT TO [facility] AND THE CUSTOMER PROGRAM MANAGER RN KELL WAS NOTIFIED. MESSAGE LEFT WITH FABI CORONEL REGARDING PT'S NEED FOR HOME HEALTH AND REQUESTED THAT SHE FOLLOW UP ON MONDAY. PLAN FOR DISCHARGE TO DAY. WILL CONTINUE TO MONITOR.
--- NOTE | 2021-04-04 13:41 | NUR ---
BOWEL CARE MIRALAX AND MILK OF MAGNESIA GIVEN. PT DECLINED SUPPOSITORY AND REPORTS SHE WOULD TAKE ONE AT HOME. WILL CONTINUE TO MONITOR.
--- NOTE | 2021-04-04 16:53 | NUR ---
DISCHARGE PT PROVIDED WITH WRITTEN AND VERBAL DISCHARGE INSTRUCTIONS, SHE REPORTED UNDERSTANDING INSTRUCTIONS. PAIN MANAGED AT TIME OF DISCHARGE. PT DECLINED SUPPOSITORY AND WAS EDUCATED TO CONTINUE BOWEL CARE AT HOME, PT VERBALIZED THAT SHE WOULD CONTINUE BOWEL CARE AT HOME. CLEAN DRESSINGS PROVIDED ALONG WITH INSTRUCTIONS ON DRESSING CHANGES. PT REPORTED SHE HAD ALL NEEDED EQUIPMENT AT HOME. HOME HEALTH NOTIFIED OF NEED TO SEE PT. PT WAS ASSISTED INTO THE VEHCLE BY HER FAMILY, SHE HAD SOME DIFFICULTY R/T THE HEIGHT OF THE VEHICLE, PT'S FAMILY WAS ABLE TO PROBLEM SOLVE TO GET HER INTO THE VEHICLE. BELONGINGS SENT HOME WITH PATIENT.
--- NOTE | 2021-04-05 11:16 | NUR ---
Per Dr. Michael discharge appropriate on: 04/04/21. Patient does not oppose to discharge. Transportation to residence provided by family. Spoke with Ayla this morning to discuss Home Health choice, patient would like to continue services with [facility] and [facility]. Due to inclement weather, [facility] office is closed today; I will contact Brandy Moreno on 04/06 to coordinate home health services. DME: Sergei patient states she has a walker, wheelchair, and bedside commode. Patient did not have any barriers to discharge on 04/04/21. Patient has a strong support network of family and friends. [facility] Transition of Care will contact patient to schedule hospital follow-up with PCP.
== END 2021-04-04 16:45 | disposition home health service (06) | DRG 481 ==
LOC: ER 07:23 → SURS 12:00 → ERHOLD 12:00 → SURS 15:47
PROVIDERS: Family Medicine; Internal Medicine; Orthopaedic Surgery; Physician Assistant; ADMIT Family Medicine
PROC: 0QS606Z Reposition Right Upper Femur with Intramedullary Internal Fixation Device, Open Approach (ICD-10-PCS; principal; 2021-03-30 12:30)
PROC: 30233N1 Transfusion of Nonautologous Red Blood Cells into Peripheral Vein, Percutaneous Approach (ICD-10-PCS; 2021-04-01)
DX: S72.141A Displaced intertrochanteric fracture of right femur, initial encounter for closed fracture (principal); D62 Acute posthemorrhagic anemia; K92.2 Gastrointestinal hemorrhage, unspecified; Z20.822 Contact with and (suspected) exposure to COVID-19; F41.9 Anxiety disorder, unspecified; N18.32 Chronic kidney disease, stage 3b; M81.0 Age-related osteoporosis without current pathological fracture; E87.6 Hypokalemia; Z96.642 Presence of left artificial hip joint; D63.1 Anemia in chronic kidney disease; W01.0XXA Fall on same level from slipping, tripping and stumbling without subsequent striking against object, initial encounter; G47.00 Insomnia, unspecified; Y92.000 Kitchen of unspecified non-institutional (private) residence as the place of occurrence of the external cause; Z98.890 Other specified postprocedural states; Z90.710 Acquired absence of both cervix and uterus; Z79.899 Other long term (current) drug therapy
CPT/HCPCS: 0241U; 36415; 36430; 51702; 73502; 80048; 80053; 84132; 85014; 85018; 85025; 86850; 86900; 86901; 86923; 94762; 96374; 96376; 97110; 97162; 97166; 97530; 97535; 99285-25; A9270; C1713; C9113; J0690; J1100; J1170; J1650; J2250; J2370; J2405; J2704; J2710; J3010; J3480; J7030; J7040; P9016

== ENCOUNTER → 2021-04-21 | Outpatient (CLI) | payer OTHER ==
[~2021-04-21] MED LIST changes: +Aspir 8181 MG PO; +BISA10S PR; +DULCOLAX400 MG/5 M PO; +MIRALAX17 GM PO; +PANT40 PO
[2021-04-23 11:54] LABS: Stool Occult Bld Immuno 1 Negative (NEGATIVE)
== END | disposition home or self-care (01) ==
LOC: LAB SHORT 13:06
PROVIDERS: Physician Assistant
DX: K92.1 Melena (principal)
CPT/HCPCS: 82274

== ENCOUNTER 2021-06-30 11:56 | Day surgery (SDC) | payer OTHER ==
[~2021-06-30 11:56] MED LIST changes: +POTA10T PO; +TRAM50 PO; +TRANSDERM-SCOP1 EAC1 TD
--- NOTE | 2021-06-30 12:39 | NUR ---
06/30/21 1239 Bala Quiles PT CANCELLED PER DR LANDAVERDE DUE TO EATING LUNCH YESTERDAY AND NOT HAVING DONE A PREP. PT LEFT AT 1224.
== END 2021-06-30 12:24 | disposition home or self-care (01) ==
LOC: ORSCSDS 11:56
DX: D50.9 Iron deficiency anemia, unspecified (principal); K21.9 Gastro-esophageal reflux disease without esophagitis; K92.0 Hematemesis; Z53.9 Procedure and treatment not carried out, unspecified reason
CPT/HCPCS: J2704; J7120